=== PATIENT | male | born 1990 | race American Indian/Alaskan Native ===

== ENCOUNTER 2016-11-02 14:39 | Emergency (ER) | payer OTHER ==
[2016-11-02 14:47] VITALS: BP 155/90; PULSE 81; TEMP 97.9; BMI 40.4
[2016-11-02] MEDS ORDERED: IBUPROFEN 600 MG TABLET (FP) PO ONE ×2 (14:48→14:58)
--- NOTE | 2016-11-02 15:26 | PDOC ---
History of Present Illness - General Chief Complaint: Ear Problem Stated Complaint: EARACHE Time Seen by Provider: 11/02/16 14:45 History Source: Patient Exam Limitations: No Limitations - History of Present Illness Initial Comments: 11/02/16 16:38 Chief complaint: Right ear ache, sore throat, intermittent headache, and productive cough History of present illness: Patient is a 26-year-old male with a history of asthma, depression and anxiety here today complaining of sore throat, productive cough with yellowish phlegm with intermittent headache times one week. Patient reports that he's had an earache that is getting worse over the last few days wth a popping sensation at times patient reports warts he also has nasal congestion. Denies any decreased hearing. Patient denies any swimming lately. Patient reports that his girlfriend and mother and father have been sick with flulike symptoms before him. Patient also reports wheezing especially at night for the last few weeks. Patient denies any shortness of breath. Patient has been using his albuterol pump intermittently without total relief of symptoms. Timing/Duration: getting worse (rt. earache) Associated Symptoms: reports: cough (productive cough yellowish for one week. wheezing for few weeks worse at night ), headaches (generalized none now ). denies: fever/chills, shortness of breath Past History - Past Medical History Allergies/Adverse Reactions: Allergies Allergy/AdvReac Type Severity Reaction Status Date / Time No Known Allergies Allergy Verified 11/02/16 14:44 Home Medications: Ambulatory Orders Clonazepam [Klonopin] 0 mg PO DAILY 03/29/14 Fluoxetine HCl [Prozac] 0 mg PO DAILY 03/29/14 Olmesartan Medoxomil [Benicar -] 20 mg PO DAILY 03/29/14 Quetiapine Fumarate [Seroquel -] 0 mg PO HS 03/29/14 Amlodipine Besylate [Norvasc -] 2.5 mg PO DAILY 01/22/15 Albuterol Sulfate Inhaler - [Ventolin HFA Inhaler -] 2 inh PO Q4H PRN #1 inh Azithromycin [Zithromax 250mg Tablets -] 250 mg PO UTDICT #6 tab 11/02/16 Fexofenadine HCl [Yahaira Allergy] 180 mg PO DAILY #10 tablet 11/02/16 Fluticasone Prop 0.05% Nasal [Flonase -] 2 spray NS DAILY #1 spray 11/02/16 Ibuprofen 600 mg PO Q6H PRN #18 tablet 11/02/16 Ofloxacin Otic [Floxin Otic -] 10 drop AD DAILY #1 drops 11/02/16 Prednisone [Deltasone] 20 mg PO BID #8 tablet 11/02/16 Asthma: Yes COPD: (sleep apnea) HTN: Yes Psychiatric Problems: Yes (Anxiety, Depression) - Psycho/Social/Smoking Cessation Hx Anxiety: No Suicidal Ideation: No Smoking History: Never smoked Have you smoked in the past 12 months: No Information on smoking cessation initiated: No Hx Alcohol Use: No Drug/Substance Use Hx: No Substance Use Type: None Review of Systems - Review of Systems Able to Perform ROS?: Yes Constitutional: No: Symptoms Reported HEENTM: Yes: Ear Pain (right ), Nose Congestion, Throat Pain, Other Respiratory: Yes: Wheezing (for a few weeks ), Productive cough (yellowish ). No: Shortness of Breath, SOB with Exertion, SOB at Rest Cardiac (ROS): No: Symptoms Reported ABD/GI: No: Symptoms Reported : No: Symptoms Reported Musculoskeletal: No: Symptoms Reported Integumentary: No: Symptoms Reported Neurological: Yes: Headache (intermittent none now ) *Physical Exam - Vital Signs Last Vital Signs Temp Pulse Resp BP Pulse Ox 97.9 F 81 18 155/90 100 11/02/16 14:45 11/02/16 14:45 11/02/16 14:45 11/02/16 14:45 11/02/16 14:45 - Physical Exam General Appearance: Yes: Appropriately Dressed HEENT: positive: TMs Normal, Pharyngeal Erythema, Tonsillar Erythema (with no uvular deviation), Nasal Congestion, Other (rt. external ear canal erythema). negative: Tonsillar Exudate, Rhinorrhea, Hearing Decreased, Hearing Grossly Normal, TM Bulging, TM Dull, TM Erythema Neck: positive: Lymphadenopathy (R), Lymphadenopathy (L) Respiratory/Chest: positive: Rhonchi (clears with cough), Wheezing (diffuse expiratory b/l ). negative: Chest Tender, Lungs Clear, Normal Breath Sounds, Respiratory Distress, Paradoxal Breathing, Crackles, Rales Cardiovascular: positive: Regular Rhythm, Regular Rate, S1, S2 Integumentary: positive: Normal Color Neurologic: positive: Alert, Normal Response, Responsive ED Treatment Course - Medications Given in the ED: ED Medications Discontinued Medications Generic Name Dose Route Start Last Admin Trade Name Malka PRN Reason Stop Dose Admin Ibuprofen 600 mg 11/02/16 14:48 11/02/16 15:02 Motrin - PO 11/02/16 14:49 600 mg ONCE ONE Administration Medical Decision Making - Medical Decision Making 11/02/16 16:40 Patient is a 26-year-old male with a history of asthma, depression and anxiety here today complaining of sore throat, productive cough with yellowish phlegm with intermittent headache times one week. Patient reports that he's had an earache that is getting worse over the last few days wth a popping sensation at times patient reports warts he also has nasal congestion. Denies any decreased hearing. Patient denies any swimming lately. Patient reports that his girlfriend and mother and father have been sick with flulike symptoms before him. Patient also reports wheezing especially at night for the last few weeks. Patient denies any shortness of breath. Patient has been using his albuterol pump intermittently without total relief of symptoms. Otitis external right Productive cough BRONCHITIS Acute asthma exacerbation Nasal congestion, Plan: Influenza a and B rapid ordered by Dr. Bell was negative DuoNeb now Prednisone 60 mg by mouth now then 20 mg twice a day times following 4 days Yahaira 180 mg daily 10 days Ofloxacin otic 0.3 % 10 drops right ear for 10 days Ventolin pump HFA 2 puffs every 4 hours as needed for any wheezing or shortness of breath flonase 2 sprays each nostril daily for 10 days AZITHROMYCIN 250 MG 2 TABS TODAY THAN 1 TAB DAILY FOR FOLLOWING 4 DAYS xray chest PA/lateral no infiltrate noted per Dr. Brown 11/02/16 16:43 11/02/16 16:48 *DC/Admit/Observation/Transfer Diagnosis at time of Disposition: Asthma exacerbation, Bronchitis Otitis externa Qualifiers: Otitis externa type: unspecified type Laterality: right Chronicity: acute Qualified Code(s): H60.501 - Unspecified acute noninfective otitis externa, right ear - Discharge Dispostion Disposition: HOME Condition at time of disposition: Stable - Prescriptions Prescriptions: Fexofenadine HCl [Yahaira Allergy] 180 mg PO DAILY #10 tablet Prednisone [Deltasone] 20 mg PO BID #8 tablet Fluticasone Prop 0.05% Nasal [Flonase -] 2 spray NS DAILY #1 spray Ofloxacin Otic [Floxin Otic -] 10 drop AD DAILY #1 drops - Patient Instructions Additional Instructions: Return to emergency room if symptoms worsen any difficulty breathing Follow-up with your primary care provider within the next few days Rest and drink a lot of fluids Patient voiced understanding of discharge instructions and all questions were answered
[2016-11-02] MEDS ORDERED: ALBUTEROL SO4 2.5/IPRATROPIUM 0.5 INH SOL 3 ML VIAL.NEB. NEB ONE ×2 (15:50→15:51)
[2016-11-02] MEDS ORDERED: predniSONE 20 MG TABLET (UD) PO ONE (16:38)
[2016-11-02] MEDS ORDERED: predniSONE 20 MG TABLET (UD) ONE (16:39)
== END 2016-11-02 17:17 | disposition home or self-care (01) ==
LOC: JERFT 14:39
PROC: 3E0F7GC Introduction of Other Therapeutic Substance into Respiratory Tract, Via Natural or Artificial Opening (ICD-10-PCS; principal; 2016-11-02)
DX: J45.901 Unspecified asthma with (acute) exacerbation (principal); J20.9 Acute bronchitis, unspecified; H60.501 Unspecified acute noninfective otitis externa, right ear; I10 Essential (primary) hypertension; F41.8 Other specified anxiety disorders; J45.909 Unspecified asthma, uncomplicated; G47.39 Other sleep apnea
CPT/HCPCS: 71020-TC; 87804; 94640; 99281-25